=== PATIENT | female | born 1930 | race Caucasian/White ===

== ENCOUNTER 2021-01-15 13:28 | Emergency (ER) | payer MEDICARE ==
[~2021-01-15] VITALS: Ht 152.4 cm; Wt 63.6 kg
[2021-01-15 13:59] LABS: HEMATOCRIT 37 % (35-52); HEMOGLOBIN 12.2 G/DL (11.5-16.0); MEAN CORPUSCULAR HEMOGLOBIN 31 PG (25-34); WHITE BLOOD COUNT 4.9 10^3/uL (4.3-11.0)
[2021-01-15 14:00] LABS: BASOPHILS # (AUTO) 0.1 10^3/uL (0.0-0.1); BASOPHILS % (AUTO) 1 % (0-10); EOSINOPHILS # (AUTO) 0.1 10^3/uL (0.0-0.3); EOSINOPHILS % (AUTO) 2 % (0-10); LYMPHOCYTES # (AUTO) 1.4 X 10^3 (1.0-4.0); LYMPHOCYTES % (AUTO) 29 % (12-44); MEAN CORPUSCULAR HGB CONC 33 G/DL (32-36); MEAN CORPUSCULAR VOLUME 92 FL (80-99); MEAN PLATELET VOLUME 9.6 FL (7.4-10.4); MONOCYTES # (AUTO) 0.5 X 10^3 (0.0-1.0); MONOCYTES % (AUTO) 10 % (0-12); NEUTROPHILS # (AUTO) 2.8 X 10^3 (1.8-7.8); NEUTROPHILS % (AUTO) 58 % (42-75); PLATELET COUNT 255 10^3/uL (130-400)
--- NOTE | 2021-01-15 14:13 | Diagnostic Imaging Report ---
INDICATION: Shortness of breath. FINDINGS: The lungs are clear. No failure, effusion, or pneumothorax. IMPRESSION: No acute appearing abnormality. Dictated by: Dictated on workstation # [id number]
[2021-01-15 14:32] LABS: ALANINE AMINOTRANSFERASE 5 U/L (0-55); ALKALINE PHOSPHATASE 63 U/L (40-136); BILIRUBIN,TOTAL 0.5 MG/DL (0.1-1.0); BUN/CREATININE RATIO 18; CALCIUM 9.2 MG/DL (8.5-10.1); CARBON DIOXIDE 29 MMOL/L (21-32); CHLORIDE 103 MMOL/L (98-107); CREATININE SERUM 0.85 MG/DL (0.60-1.30); GFR ESTIMATED > 60; GLUCOSE 86 MG/DL (70-105); MAGNESIUM 2.2 MG/DL (1.6-2.4); POTASSIUM 4.5 MMOL/L (3.6-5.0); SODIUM 138 MMOL/L (135-145); TOTAL PROTEIN 6.8 GM/DL (6.4-8.2)
--- NOTE | 2021-01-15 14:50 | ED General ---
General Chief Complaint: Cardiac/General Problems Stated Complaint: HEART RATE FLUCTUATING Source of Information: Patient History of Present Illness Date Seen by Provider: Jan 15, 2021 Time Seen by Provider: 13:55 Initial Comments Patient is an 89-year-old female presents from [facility] with reports of sinus arrhythmia during anesthesia. Patient received 1 mg of Versed for evaluation of left and was connected to a monitor. It was noted the patient had heart rhythm ranging from 50-100. There appear to be P waves preceding each QRS per [employer]. Patient denied symptoms of dizziness lightheadedness chest pain palpitations, shortness of breath or other medical complaints during the episode or during transport by private vehicle to ED. Patient denies any symptoms. Patient noticed to have a sinus arrhythmia on monitor. No history of A. fib or underlying cardiac condition. Other than Xanax the patient does not take daily medications. Timing/Duration: 1-3 Hours Severity: Mild Modifying Factors: improves with Other Associated Systoms: Other Allergies and Home Medications Patient Home Medication List Home Medication List Reviewed: Yes Review of Systems Review of Systems Constitutional: no symptoms reported EENTM: see HPI Respiratory: see HPI Gastrointestinal: see HPI Genitourinary: see HPI Musculoskeletal: see HPI Skin: see HPI Psychiatric/Neurological: See HPI Hematologic/Lymphatic: See HPI Immunological/Allergic: see HPI All Other Systems Reviewed Negative Unless Noted: Yes Past Kpzvdud-Agvhmx-Ilzuew Hx Past Med/Social Hx: Reviewed Nursing Past Med/Soc Hx Physical Exam Vital Signs Capillary Refill : Height, Weight, BMI Height: '" Weight: lbs. oz. kg; BMI Method: General Appearance: No Apparent Distress, WD/WN Eyes: Bilateral Eye Normal Inspection, Bilateral Eye PERRL, Bilateral Eye EOMI HEENT: PERRL/EOMI, Normal ENT Inspection, Pharynx Normal Neck: Full Range of Motion, Non Tender, Supple Respiratory: Chest Non Tender, Lungs Clear Cardiovascular: No Edema, Other (Irregular rhythm) Gastrointestinal: Non Tender, Soft Back: Normal Inspection, No CVA Tenderness Extremity: Normal Inspection, Normal Range of Motion, Non Tender Neurologic/Psychiatric: Alert, Oriented x3, No Motor/Sensory Deficits Skin: Normal Color Progress/Results/Core Measures Suspected Sepsis SIRS Temperature: Pulse: Respiratory Rate: Laboratory Tests 01/15/21 13:40: White Blood Count 4.9 Blood Pressure / Mean: Laboratory Tests 01/15/21 13:40: Creatinine 0.85, Platelet Count 255, Total Bilirubin 0.5 Results/Orders Lab Results Laboratory Tests Test 01/15/21 13:40 Range/Units White Blood Count 4.9 4.3-11.0 10^3/uL Red Blood Count 3.97 L 4.35-5.85 10^6/uL Hemoglobin 12.2 11.5-16.0 G/DL Hematocrit 37 35-52 % Mean Corpuscular Volume 92 80-99 FL Mean Corpuscular Hemoglobin 31 25-34 PG Mean Corpuscular Hemoglobin Concent 33 32-36 G/DL Red Cell Distribution Width 13.3 10.0-14.5 % Platelet Count 255 130-400 10^3/uL Mean Platelet Volume 9.6 7.4-10.4 FL Immature Granulocyte % (Auto) 0 % Neutrophils (%) (Auto) 58 42-75 % Lymphocytes (%) (Auto) 29 12-44 % Monocytes (%) (Auto) 10 0-12 % Eosinophils (%) (Auto) 2 0-10 % Basophils (%) (Auto) 1 0-10 % Neutrophils # (Auto) 2.8 1.8-7.8 X 10^3 Lymphocytes # (Auto) 1.4 1.0-4.0 X 10^3 Monocytes # (Auto) 0.5 0.0-1.0 X 10^3 Eosinophils # (Auto) 0.1 0.0-0.3 10^3/uL Basophils # (Auto) 0.1 0.0-0.1 10^3/uL Immature Granulocyte # (Auto) 0.0 0.0-0.1 10^3/uL Sodium Level 138 135-145 MMOL/L Potassium Level 4.5 3.6-5.0 MMOL/L Chloride Level 103 98-107 MMOL/L Carbon Dioxide Level 29 21-32 MMOL/L Anion Gap 6 5-14 MMOL/L Blood Urea Nitrogen 15 7-18 MG/DL Creatinine 0.85 0.60-1.30 MG/DL Estimat Glomerular Filtration Rate > 60 BUN/Creatinine Ratio 18 Glucose Level 86 70-105 MG/DL Calcium Level 9.2 8.5-10.1 MG/DL Corrected Calcium 9.2 8.5-10.1 MG/DL Magnesium Level 2.2 1.6-2.4 MG/DL Total Bilirubin 0.5 0.1-1.0 MG/DL Aspartate Amino Transf (AST/SGOT) 12 5-34 U/L Alanine Aminotransferase (ALT/SGPT) 5 0-55 U/L Alkaline Phosphatase 63 40-136 U/L Total Protein 6.8 6.4-8.2 GM/DL Albumin 4.0 3.2-4.5 GM/DL My Orders Orders - BALWINDER LEYVA DO Cbc With Automated Diff (01/15/21 13:41) Comprehensive Metabolic Panel (01/15/21 13:41) Thyroid Stimulating Hormone (01/15/21 13:41) Chest 1 View Ap/Pa Only (01/15/21 13:41) Magnesium (01/15/21 13:41) Vital Signs/I&O Capillary Refill : Departure Communication (Admissions) EK01/15/21, 1335: Sinus tachycardia, rate 102, VT 130, QRS 88, QTc 507, prolonged QT interval but no other acute ST segment changes. Chest x-ray: No acute findings. Preliminary labs, no acute abnormalities Patient asymptomatic with sinus arrhythmia with stable blood pressure on monitor. Recommendations are to follow-up with Dr. GOLDMAN patient's PCP for further evaluation and treatment. Return precautions reviewed. Patient verbalizes understanding agreement with discharge instructions prior to departure. Impression Primary Impression: Sinus arrhythmia Additional Impression: Prolonged QT interval Disposition: 01 HOME, SELF-CARE Condition: Stable Departure-Patient Inst. Decision time for Depature: 14:51 Patient Instructions: Arrhythmias (DC) Add. Discharge Instructions: You were evaluated in the emergency department for a sinus arrhythmia. Your heart rate ranged from 50-100 on the monitor during rest. Please follow-up with your PCP for further evaluation and review of today's ED labs and for consi deration of a Holter monitor. In the meantime, return to the emergency department if you develop dizziness lightheadedness chest pain or palpitations or any other concerning symptoms or complaints. All discharge instructions reviewed with patient and/or family. Voiced understanding. BALWINDER LEYVA DO Jan 15, 2021 14:50
[2021-01-15 15:10] VITALS: BP 135/85
[2021-01-15] MEDS ORDERED: ALPR0.5T7 PO (15:45)
== END 2021-01-15 14:58 | disposition home or self-care (01) ==
LOC: EDUNIT# 13:28 → ER FS 13:31
DX: I49.8 Other specified cardiac arrhythmias (principal); I45.81 Long QT syndrome
CPT/HCPCS: 36415; 71045; 80053; 83735; 84443; 85025; 93005